=== PATIENT | male | born 1945 | race Caucasian/White ===

== ENCOUNTER 2021-10-16 09:51 | Emergency (ER) | payer MEDICARE ==
[~2021-10-16] VITALS: Ht 172.7 cm; Wt 75.0 kg
[2021-10-16 10:00] VITALS: BP 142/71
[2021-10-16] MEDS ORDERED: LIPITOR40 M1 PO (10:14)
[2021-10-16] MEDS ORDERED: ZETIA10 MG PO (10:14)
[2021-10-16 10:15] VITALS: BP 122/59
[2021-10-16] MEDS ORDERED: DILTIAZEM HCL60 MG PO (10:15)
[2021-10-16] MEDS ORDERED: RAPAFLO8 MG PO (10:15)
[2021-10-16] MEDS ORDERED: XANAX0.25 MG PO (10:15)
[2021-10-16] MEDS ORDERED: OMEPRAZOLE20 MG PO (10:15)
[2021-10-16] MEDS ORDERED: SULFASALAZIN500 M1 PO (10:15)
[2021-10-16] MEDS ORDERED: FUROSEMIDE20 MG PO (10:16)
[2021-10-16] MEDS ORDERED: ALBUTEROL SUL0.083 % IN (10:16)
[2021-10-16] MEDS ORDERED: BREO ELLIPTA1 INH (10:16)
[2021-10-16] MEDS ORDERED: OFEV150 MG (10:16)
[2021-10-16] MEDS ORDERED: PAROXETINE10 MG PO (10:16)
[2021-10-16] MEDS ORDERED: MEDDOSEPAK PO (10:17)
[2021-10-16] MEDS ORDERED: [UNRECOGNIZED DRUG - OTHER] (10:17)
[2021-10-16] MEDS ORDERED: PROLIA60 MG/ML SC (10:17)
[2021-10-16] MEDS ORDERED: FLONASE AL50 MCG/ACT (10:18)
[2021-10-16] MEDS ORDERED: VITAMIN D PO (10:18)
[2021-10-16] MEDS ORDERED: ASPIRIN81 MG PO (10:18)
[2021-10-16] MEDS ORDERED: BACTRIM DS1 TAB PO ×2 (10:23→10:39)
[2021-10-16] MEDS ORDERED: OMNICEF300 M1 PO ×2 (10:23→10:39)
[2021-10-16 10:32] VITALS: BP 135/61
== END 2021-10-16 10:45 | disposition home or self-care (01) ==
LOC: ED 09:51
DX: M70.21 Olecranon bursitis, right elbow (principal); B96.89 Other specified bacterial agents as the cause of diseases classified elsewhere; Y93.9 Activity, unspecified